=== PATIENT | female | born 1995 | race Caucasian/White ===

== ENCOUNTER → 2022-12-13 15:39 | Outpatient (BNVA) | payer MEDICAID, SELFPAY | PROVIDERS: Visit Provider Nurse Practitioner Family | DX: R06.02 Shortness of breath (principal); M79.605 Pain in left leg; R21 Rash and other nonspecific skin eruption; R68.89 Other general symptoms and signs; L03.116 Cellulitis of left lower limb; F41.9 Anxiety disorder, unspecified | CPT/HCPCS: 81025 ==